=== PATIENT | female | born 1980 | race American Indian/Alaskan Native ===

== ENCOUNTER 2017-10-25 15:56 | Emergency (ER) | payer OTHER ==
[2017-10-25 16:26] VITALS: BP 146/85
[2017-10-25 17:29] LABS: Bilirubin,Urine NEG (Negative); Blood,Urine NEG (Negative); Ketones,Urine NEG (Negative); Leukocyte Esterase,Urine TR (Negative); Mucus,Urine FEW /HPF; Nitrite,Urine NEG (Negative); Protein,Urine <15 mg/dL mg/dL (Negative); Urobilinogen,Urine < 2.0 mg/dL (<2.0)
--- NOTE | 2017-10-25 19:24 | XRay Report ---
FINAL REPORT PROCEDURE: Chest. TECHNIQUE: PA and lateral views. HISTORY: Cough. COMPARISON: No prior studies are available for comparison. FINDINGS: The heart and mediastinum appear normal. The lungs are clear and well expanded. There are no pleural effusions. The soft tissues and regional skeleton are unremarkable. IMPRESSION: Normal study.
--- NOTE | 2017-10-25 19:30 | Emergency Department Report ---
HPI - General Chief Complaint: Upper Respiratory Infection Time Seen by Provider: 10/25/17 19:27 - HPI HPI: Pt is a 37-year-old female with no prior medical conditions are presents to ED complaining of slurred sooner yellowish sputum productive cough 1 month. Patient states she thinks she had a cold about a month ago and has had a cough since then. Patient states his cough is intermittent throughout the day. Patient denies any history of asthma taking medications or having any allergies to any medications. Patient states she had taken Robitussin and Tylenol Cold and Mucinex with no relief. She denies fevers/chills/vomiting/chest pain/S of breath/dizziness/runny nose, or any other problems ED Past Medical Hx - Past Medical History Hx Hypertension: No Hx Congestive Heart Failure: No Hx Diabetes: No Hx Deep Vein Thrombosis: No Hx Renal Disease: No Hx Sickle Cell Disease: No Hx Seizures: No Hx Asthma: No Hx COPD: No Hx HIV: No - Surgical History Past Surgical History?: No - Social History Smoking Status: Never Smoker Substance Use Type: None - Medications Home Medications: Home Medications Medication Instructions Recorded Confirmed Last Taken Type Sulfamethoxazole/Trimethoprim 1 each PO BID #20 tablet 06/10/15 Unknown Rx [Bactrim DS TAB] Famotidine [Pepcid] 20 mg PO BID #30 tablet 10/25/16 Unknown Rx Loperamide [Imodium] 2 mg PO Q2HR PRN #20 capsule 10/25/16 Unknown Rx Promethazine [Phenergan TAB] 25 mg PO Q6H PRN #20 tablet 10/25/16 Unknown Rx traMADol [Ultram 50 MG tab] 50 mg PO Q6HR PRN #20 tablet 10/25/16 Unknown Rx ALBUTEROL Inhaler [ProAir HFA 2 puff IH QID PRN #1 pump 10/25/17 Unknown Rx Inhaler] Promethazine /Codeine 5 ml PO Q6H PRN #60 ml 10/25/17 Unknown Rx [Phenergan/Codeine 6.25-10 mg/5Ml] ED Review of Systems ROS: Stated complaint: COUGHING Other details as noted in HPI Constitutional: denies: chills, fever Eyes: denies: eye pain, eye discharge, vision change ENT: denies: ear pain, throat pain Respiratory: cough. denies: shortness of breath, wheezing Cardiovascular: denies: chest pain, palpitations Endocrine: no symptoms reported Gastrointestinal: nausea. denies: abdominal pain, diarrhea Genitourinary: denies: urgency, dysuria, discharge Musculoskeletal: denies: back pain, joint swelling, arthralgia Skin: denies: rash, lesions Neurological: denies: headache, weakness, paresthesias Psychiatric: denies: anxiety, depression Hematological/Lymphatic: denies: easy bleeding, easy bruising Physical Exam - Physical Exam Vital Signs: Vital Signs 10/25/17 16:21 Temperature 98.3 F Pulse Rate 85 Respiratory 16 Rate Blood Pressure 146/85 O2 Sat by Pulse 98 Oximetry Physical Exam: GENERAL: Alert and oriented x3, no apparent distress, Normal Gait, atraumatic. HEAD: Head is normocephalic and a-traumatic. EYES: Extra ocular muscles are intact. Pupils are equal, round, and reactive to light and accommodation. EARS: symetrical, atraumatic, non tender, ear canal clear and moderate cerumen, tympanic membrance non inflamed. gross auditory nml bilaterally. NOSE: Nose symetrical, Nontender,Nares appeared normal. MOUTH:Mouth is well hydrated and without lesions. Tonsils nonerythematous or swollen, Uvula midline, Tongue not elevated. Mucous membranes are moist. Posterior pharynx clear, no exudate or lesions. Patent airways. NECK: Supple. Non edematous, No carotid bruits. No lymphadenopathy or thyromegaly. No C-spine tenderness LUNGS: Symetrical with respiration, No wheezing, no rales or crackles, CTAB. HEART: S1, S2 present, regular rate and rhythm without murmur, no rubs, no gallops. Non tender to palpation SKIN: Warm and dry, No lesions, No ulceration or induration present. ED Course Vital Signs 10/25/17 16:21 Temperature 98.3 F Pulse Rate 85 Respiratory 16 Rate Blood Pressure 146/85 O2 Sat by Pulse 98 Oximetry ED Medical Decision Making - Radiology Data Radiology results: report reviewed, image reviewed FINAL REPORT PROCEDURE: Chest. TECHNIQUE: PA and lateral views. HISTORY: Cough. COMPARISON: No prior studies are available for comparison. FINDINGS: The heart and mediastinum appear normal. The lungs are clear and well expanded. There are no pleural effusions. The soft tissues and regional skeleton are unremarkable. IMPRESSION: Normal study. Transcribed By: VIJAY Dictated By: HAILEY SAWYER MD Electronically Authenticated By: HAILEY SAWYER MD Signed Date/Time: 10/25/17 1521 - Medical Decision Making 37-year-old female presents with bronchitis. ED course: Patient received 60 prednisone while in ED Chest x-ray ordered negative findings Urinalysis and urine culture ordered, negative findings on the urine I discussed all this findings with the patient. I discussed the patient to rest and increase fluids. discussed cough suppressants at home and symptomatic relief. I discussed with patient if she has any new symptoms or worsening symptoms to return to ED I discussed the patient will follow up with primary care physician as referred. Vital signs are normal patient is in no acute or respiratory distress, she is neurologically intact. Critical care attestation.: If time is entered above; I have spent that time in minutes in the direct care of this critically ill patient, excluding procedure time. ED Disposition Clinical Impression: Bronchitis Disposition: DC- TO HOME OR SELFCARE Is pt being admited?: No Does the pt Need Aspirin: No Condition: Stable Instructions: Chronic Bronchitis (ED) Additional Instructions: Follow-up with primary care physician. Take medications as prescribed. If you develop any new symptoms such as dizziness shortness of breath, chest pain ,return to ED immediately Prescriptions: ALBUTEROL Inhaler [ProAir HFA Inhaler] 2 puff IH QID PRN #1 pump PRN Reason: Shortness Of Breath Promethazine /Codeine [Phenergan/Codeine 6.25-10 mg/5Ml] 5 ml PO Q6H PRN #60 ml PRN Reason: cough Referrals: PRIMARY CAREMD [Primary Care Provider] - 3-5 Days [facility] [Outside] - 3-5 Days [facility] [Outside] - 3-5 Days [facility] [Outside] - 3-5 Days Forms: Work/School Release Form(ED) Time of Disposition: 19:45
[2017-10-25] MEDS ORDERED: DELTASONE PO ONE (19:53)
== END 2017-10-25 20:11 | disposition home or self-care (01) ==
LOC: ED 15:56
DX: J40 Bronchitis, not specified as acute or chronic (principal)
CPT/HCPCS: 71020; 81001; 81025; 87086; 99284; J7512

== ENCOUNTER 2020-10-13 12:29 | Emergency (ER) | payer MEDICAID ==
--- NOTE | 2020-10-13 13:00 | Emergency Department Report ---
Blank Doc - Documentation Documentation: 40-year-old female that presents with n/v. Stated is 9 weeks . Denies any vaginal bleeding. This initial assessment/diagnostic orders/clinical plan/treatment(s) is/are subject to change based on patient's health status, clinical progression and re- assessment by fellow clinical providers in the ED. Further treatment and workup at subsequent clinical providers discretion. Patient/guardians urged not to elope from the ED as their condition may be serious if not clinically assessed and managed. Initial orders include: 1- Patient sent to [facility] for further evaluation and treatment 2- labs
[2020-10-13 13:41] LABS: Hematocrit 38.1 % (30.3-42.9); Mean Corpuscular HGB Conc 34 % (30-34); Mean Corpuscular Volume 85 fl (79-97); Platelet Count 422 K/mm3 (140-440); Red Cell Distribution Width 15.4 % (13.2-15.2)
[2020-10-13 13:46] LABS: Alanine Aminotransferase 29 units/L (7-56); Albumin 3.3 g/dL (3.9-5); Blood Urea Nitrogen 9 mg/dL (7-17); Calcium 9.2 mg/dL (8.4-10.2); Hemolysis Index 11
[2020-10-13] MEDS ORDERED: diphenhydrAMINE 50 MG/ML VIAL IV ONE (13:54)
[2020-10-13] MEDS ORDERED: METOCLOPRAMIDE 10 MG/2 ML INJ IV ONE (13:54)
[2020-10-13] MEDS ORDERED: D5W/0.9% NACL 1,000 ML IV SCH (14:00)
--- NOTE | 2020-10-13 14:07 | Emergency Department Report ---
ED General Adult HPI - General Chief complaint: Nausea/Vomiting/Diarrhea Stated complaint: NAUSEA Time Seen by Provider: 10/13/20 12:43 Source: patient, EMS Mode of arrival: Stretcher Limitations: No Limitations - History of Present Illness Initial comments: 40-year-old female presenting with chief complaint of nausea and vomiting ongoing for the past couple days, gradual in onset, constant. States she has not been able to keep water down at this point. She does admit to being 9 weeks but denies having this severe of symptoms with prior pregnancies. Reports some mild epigastric discomfort but denies any lower abdominal/pelvic pain, vaginal bleeding or discharge or any urinary complaints. Symptoms are moderate in severity with no modifying factors. - Related Data Previous Rx's Medication Instructions Recorded Last Taken Type Sulfamethoxazole/Trimethoprim 1 each PO BID #20 tablet 06/10/15 Unknown Rx [Bactrim DS TAB] Famotidine [Pepcid] 20 mg PO BID #30 tablet 10/25/16 Unknown Rx Loperamide [Imodium] 2 mg PO Q2HR PRN #20 capsule 10/25/16 Unknown Rx traMADoL [Ultram 50 MG tab] 50 mg PO Q6HR PRN #20 tablet 10/25/16 Unknown Rx Albuterol Mdi (or & Nicu Only) 2 puff IH QID PRN #1 pump 10/25/17 Unknown Rx [ProAir HFA Inhaler] Promethazine /Codeine 5 ml PO Q6H PRN #60 ml 10/25/17 Unknown Rx [Phenergan/Codeine 6.25-10 mg/5Ml] Promethazine [Phenergan] 25 mg PO Q6H PRN #20 tablet 10/13/20 Unknown Rx Allergies Allergy/AdvReac Type Severity Reaction Status Date / Time No Known Allergies Allergy Verified 06/10/15 15:17 ED Review of Systems ROS: Stated complaint: NAUSEA Other details as noted in HPI Comment: All other systems reviewed and negative Gastrointestinal: as per HPI ED Past Medical Hx - Past Medical History Hx Hypertension: No Hx Congestive Heart Failure: No Hx Diabetes: No Hx Deep Vein Thrombosis: No Hx Renal Disease: No Hx Sickle Cell Disease: No Hx Seizures: No Hx Asthma: No Hx COPD: No Hx HIV: No - Surgical History Past Surgical History?: No - Social History Smoking Status: Never Smoker - Medications Home Medications: Home Medications Medication Instructions Recorded Confirmed Last Taken Type Sulfamethoxazole/Trimethoprim 1 each PO BID #20 tablet 06/10/15 Unknown Rx [Bactrim DS TAB] Famotidine [Pepcid] 20 mg PO BID #30 tablet 10/25/16 Unknown Rx Loperamide [Imodium] 2 mg PO Q2HR PRN #20 capsule 10/25/16 Unknown Rx traMADoL [Ultram 50 MG tab] 50 mg PO Q6HR PRN #20 tablet 10/25/16 Unknown Rx Albuterol Mdi (or & Nicu Only) 2 puff IH QID PRN #1 pump 10/25/17 Unknown Rx [ProAir HFA Inhaler] Promethazine /Codeine 5 ml PO Q6H PRN #60 ml 10/25/17 Unknown Rx [Phenergan/Codeine 6.25-10 mg/5Ml] Promethazine [Phenergan] 25 mg PO Q6H PRN #20 tablet 10/13/20 Unknown Rx ED Physical Exam - General Limitations: No Limitations General appearance: alert, in no apparent distress - Head Head exam: Present: atraumatic, normocephalic - Eye Eye exam: Present: normal appearance - ENT ENT exam: Present: mucous membranes moist - Neck Neck exam: Present: normal inspection - Respiratory Respiratory exam: Present: normal lung sounds bilaterally. Absent: respiratory distress - Cardiovascular Cardiovascular Exam: Present: regular rate, normal rhythm. Absent: systolic murmur, diastolic murmur, rubs, gallop - GI/Abdominal GI/Abdominal exam: Present: soft, tenderness (Mild epigastric), normal bowel sounds. Absent: distended, guarding, rebound - Extremities Exam Extremities exam: Present: normal inspection - Back Exam Back exam: Present: normal inspection - Neurological Exam Neurological exam: Present: alert, oriented X3 - Psychiatric Psychiatric exam: Present: normal affect, normal mood - Skin Skin exam: Present: warm, dry, intact, normal color. Absent: rash ED Course Vital Signs 10/13/20 10/13/20 12:38 14:51 Temperature 98.1 F Pulse Rate 98 H Respiratory 18 18 Rate Blood Pressure 143/84 O2 Sat by Pulse 99 99 Oximetry ED Medical Decision Making - Lab Data Result diagrams: 10/13/20 12:58 10/13/20 12:58 - Medical Decision Making 40-year-old female at 9 weeks gestation presenting with complaints of persistent vomiting for the past 2 days. On my exam she is well-appearing and in no distress, mild epigastric discomfort noted with palpation otherwise benign abdomen. Differential diagnoses includes hyperemesis gravidarum, dehydration, pancreatitis. Labs are pending. Patient given IV fluids, Reglan, Benadryl. Patient feeling better at this time. Has Reglan at home orally which is not helping, will give prescription for Phenergan refer to [facility] [facility] for follow-up. - Differential Diagnosis hyperemesis gravidarum, dehydration, pancreatitis Critical care attestation.: If time is entered above; I have spent that time in minutes in the direct care of this critically ill patient, excluding procedure time. ED Disposition Clinical Impression: Hyperemesis gravidarum Disposition: - TO HOME OR SELFCARE Is pt being admited?: No Condition: Good Instructions: Hyperemesis Gravidarum Prescriptions: Promethazine [Phenergan] 25 mg PO Q6H PRN #20 tablet PRN Reason: Nausea And Vomiting Referrals: PRIMARY CARE, [Primary Care Provider] - 3-5 Days TIMUR CORDOVA MD [Staff Physician] - 3-5 Days Time of Disposition: 15:20
[2020-10-13 14:09] LABS: BUN/Creatinine Ratio 15
[2020-10-13 16:17] VITALS: BP 126/58
== END 2020-10-13 15:47 | disposition home or self-care (01) ==
LOC: ED 12:29
DX: O21.0 Mild hyperemesis gravidarum (principal); O21.8 Other vomiting complicating pregnancy; O26.891 Other specified pregnancy related conditions, first trimester; R10.13 Epigastric pain; Z3A.09 9 weeks gestation of pregnancy; Z79.899 Other long term (current) drug therapy
CPT/HCPCS: 36415; 80053; 83690; 84703; 85025; 96361; 96374; 96375; 99283; J1200; J2765; J7042